=== PATIENT | male | born 1995 | race Two or more races ===

== ENCOUNTER 2018-02-18 | Emergency (ER) | payer SELFPAY ==
[~2018-02-18] VITALS: Ht 160 cm; Wt 65.8 kg
--- NOTE | 2018-02-18 00:15 | PHYS DOC ---
Adult General Chief Complaint Chief Complaint: ALCOHOL INTOXICATION HPI HPI Patient is a 22 y/o HM who presents to the ED for evaluation. EMS reports that patient was found passed out on the front porch of his home by family after knocking on the door. They reported to EMS that the patient has been drinking heavily today. Pt is lethargic upon arrival to the ED, and smells of alcohol, and is unable to provide any meaningful history. Review of Systems Review of Systems Unable to obtain review of systems secondary to intoxication Current Medications Current Medications Current Medications Medications (Trade) Dose Ordered Sig/Tyler Start Time Stop Time Status Last Admin Dose Admin Lorazepam (Ativan) 2 mg STK-MED ONCE 02/18/18 00:47 02/18/18 00:48 DC Ondansetron HCl (Zofran) 4 mg 1X ONCE 02/18/18 01:15 02/18/18 01:16 DC 02/18/18 00:40 4 MG Sodium Chloride 1,000 ml @ 1,000 mls/hr Q1H 02/18/18 00:05 02/18/18 01:04 DC 02/18/18 00:20 1,000 MLS/HR Allergies Allergies Allergies Coded Allergies Type Severity Reaction Last Updated Verified No Known Drug Allergies 02/18/18 No Physical Exam Physical Exam PHYSICAL EXAM: CONSTITUTIONAL: Well developed, well nourished, no evidence of trauma. HEAD: normocephalic, atraumatic EENT: PERRL, EOMI. Conjunctivae are injected bilaterally, sclerae non-icteric; moist mucous membranes. NECK: Supple, non-tender; no meningismus. LUNGS: Lungs CTA, breathing even and unlabored. Normal air movement. HEART: Regular rate and rhythm, no murmur CHEST: No deformity; non-tender ABDOMEN: The abdomen is soft, and non-tender, no masses or bruits. EXTREM: Normal ROM; no deformity, no calf tenderness. Normal pulses palpable in all extremities. There is no pedal edema. SKIN: No rash; no diaphoresis NEURO: LEthargic, does respond to tactile and loud verbal stimuli, CN's grossly intact; strength grossly intact without focal deficit. BACK: No CVA TTP. Current Patient Data Vital Signs Vital Signs Date Time Temp Pulse Resp B/P (MAP) Pulse Ox O2 Delivery O2 Flow Rate FiO2 02/18/18 05:52 82 18 113/59 (77) 96 Room Air 02/18/18 02:18 1.5 02/18/18 00:10 97.9 97.9 Lab Values Laboratory Tests Test 02/18/18 00:15 02/18/18 00:39 02/18/18 01:20 White Blood Count 7.5 x10^3/uL (4.0-11.0) Red Blood Count 5.27 x10^6/uL (4.30-5.70) Hemoglobin 15.5 g/dL (13.0-17.5) Hematocrit 43.7 % (39.0-53.0) Mean Corpuscular Volume 83 fL (79-100) Mean Corpuscular Hemoglobin 29 pg (25-35) Mean Corpuscular Hemoglobin Concent 36 g/dL (31-37) Red Cell Distribution Width 13.8 % (11.5-14.5) Platelet Count 268 x10^3/uL (140-400) Neutrophils (%) (Auto) 44 % (31-73) Lymphocytes (%) (Auto) 45 % (24-48) Monocytes (%) (Auto) 9 % (0-9) Eosinophils (%) (Auto) 2 % (0-3) Basophils (%) (Auto) 1 % (0-3) Neutrophils # (Auto) 3.3 x10^3uL (1.8-7.7) Lymphocytes # (Auto) 3.4 x10^3/uL (1.0-4.8) Monocytes # (Auto) 0.7 x10^3/uL (0.0-1.1) Eosinophils # (Auto) 0.1 x10^3/uL (0.0-0.7) Basophils # (Auto) 0.0 x10^3/uL (0.0-0.2) Prothrombin Time 12.9 SEC (11.7-14.0) Prothrombin Time INR 1.0 (0.8-1.1) PTT 29 SEC (24-38) Sodium Level 140 mmol/L (136-145) Potassium Level 3.8 mmol/L (3.5-5.1) Chloride Level 102 mmol/L (98-107) Carbon Dioxide Level 29 mmol/L (21-32) Anion Gap 9 (6-14) Blood Urea Nitrogen 11 mg/dL (8-26) Creatinine 0.9 mg/dL (0.7-1.3) Estimated GFR (Cockcroft-Gault) 103.7 Glucose Level 112 mg/dL (70-99) H Lactic Acid Level 2.5 mmol/L (0.4-2.0) H Calcium Level 9.0 mg/dL (8.5-10.1) Magnesium Level 2.5 mg/dL (1.8-2.4) H Total Bilirubin 0.3 mg/dL (0.2-1.0) Direct Bilirubin 0.1 mg/dL (0.0-0.2) Aspartate Amino Transferase (AST) 23 U/L (15-37) Alanine Aminotransferase (ALT) 33 U/L (16-63) Alkaline Phosphatase 112 U/L (46-116) Total Protein 8.1 g/dL (6.4-8.2) Albumin 4.1 g/dL (3.4-5.0) Salicylates Level < 2.8 mg/dL (2.8-20.0) L Salicylate Last Dose Date Unk Salicylate Last Dose Time Unk Acetaminophen Level < 2 mcg/ml (10-30) L Acetaminophen Last Dose Date Unk Acetaminophen Last Dose Time Unk Ethyl Alcohol Level 193 mg/dL (0-10) H POC Venous pH 7.35 (7.32-7.42) POC Venous pCO2 51 mmHg (41-51) POC Venous pO2 44 mmHg (20-40) H Venous Blood HCO3 28 mmol/L (24-28) POC Venous O2 Saturation ([place]) 77 % POC FiO2 21.0 Urine Collection Type Unknown Urine Color Yellow Urine Clarity Clear Urine pH 7.0 Urine Specific [place] 1.015 Urine Protein Negative mg/dL (NEG-TRACE) Urine Glucose (UA) Negative mg/dL (NEG) Urine Ketones (Stick) Negative mg/dL (NEG) Urine Blood Negative (NEG) Urine Nitrite Negative (NEG) Urine Bilirubin Negative (NEG) Urine Urobilinogen Dipstick 0.2 mg/dL (0.2 mg/dL) Urine Leukocyte Esterase Negative (NEG) Urine RBC 0 /HPF (0-2) Urine WBC 0 /HPF (0-4) Urine Squamous Epithelial Cells Occ /LPF Urine Bacteria 0 /HPF (0-FEW) Urine Opiates Screen Neg (NEG) Urine Methadone Screen Neg (NEG) Urine Barbiturates Neg (NEG) Urine Phencyclidine Screen Neg (NEG) Urine Amphetamine/Methamphetamine Neg (NEG) Urine Benzodiazepines Screen Neg (NEG) Urine Cocaine Screen Neg (NEG) Urine Cannabinoids Screen Neg (NEG) Urine Ethyl Alcohol Pos (NEG) Laboratory Tests 02/18/18 00:15 Laboratory Tests 02/18/18 00:15 EKG EKG [Normal sinus rhythm at a rate of 146 bpm, normal axis, normal intervals, nonspecific ST/T changes.] Radiology/Procedures Radiology/Procedures [PROCEDURE: PORTABLE CHEST 1V AP chest x-ray HISTORY: Altered mental status. FINDINGS: Heart size normal. Mediastinal silhouette is normal. No pneumothorax, pulmonary opacities or pleural effusions. Bones are unremarkable. IMPRESSION: No acute process.] PROCEDURE: CT HEAD WO CONTRAST CT head without contrast HISTORY: Altered mental status, alcohol intoxication. TECHNIQUE: [address] imaging skull base to vertex. FINDINGS: There is motion artifact at the skull base may decrease sensitivity to detect subtle pathology of the skull base or brainstem. No intracranial hemorrhage, mass, hydrocephalus or infarction. No acute ischemic change. Orbits, mastoids, paranasal sinuses and bones are unremarkable. IMPRESSION: Motion artifact as described above. No acute intracranial CT abnormality. Course & Med Decision Making Course & Med Decision Making Pertinent Labs and Imaging studies reviewed. (See chart for details) [4:00 AM: Patient's condition remained stable. His heart rate is 86. He is still very somnolent. Will stir to tactile stimulus but is not arousable. About 3 hours ago, the patient was reported to have generalized seizure activity lasting about a minute or 2 and was given 2 mg of Ativan intravenously. He did not have any further seizure activity. I did not witness this episode.] 6:30 AM: 6:30 AM: The patient is much more awake at this time. He states he did drink a lot of alcohol last night. He is ambulatory, although still somewhat unsteady on his feet. He will continue to be observed until clinical sobriety is achieved and he is able to ambulate without difficulty or risk of fall. Dragon Disclaimer Dragon Disclaimer This electronic medical record was generated, in whole or in part, using a voice recognition dictation system. Departure Departure Impression: Primary Impression: Acute alcohol intoxication Disposition: 01 HOME, SELF-CARE Condition: STABLE Patient Instructions: Alcohol Intoxication STANLEY HOGUE MD Feb 18, 2018 00:15
[2018-02-18] MEDS: IV NORMAL SALINE 1000ML BAG 1,000 ML IV SCH (00:20)
[2018-02-18 00:40] LABS: BASO % 1 % (0-3); EOS # 0.1 x10^3/uL (0.0-0.7); EOS % 2 % (0-3); HEMATOCRIT 43.7 % (39.0-53.0); HEMOGLOBIN 15.5 g/dL (13.0-17.5); LYMPH # 3.4 x10^3/uL (1.0-4.8); LYMPH % 45 % (24-48); MEAN CORPUSCULAR HEMOGLOBIN 29 pg (25-35); MEAN CORPUSCULAR HGB CONC 36 g/dL (31-37); MEAN CORPUSCULAR VOLUME 83 fL (79-100); MONO # 0.7 x10^3/uL (0.0-1.1); MONO % 9 % (0-9); NEUT # 3.3 x10^3uL (1.8-7.7); NEUT % 44 % (31-73); PLATELET COUNT 268 x10^3/uL (140-400); RED BLOOD COUNT 5.27 x10^6/uL (4.30-5.70); RED CELL DISTRIBUTION WIDTH 13.8 % (11.5-14.5); WHITE BLOOD COUNT 7.5 x10^3/uL (4.0-11.0)
[2018-02-18] MEDS: ONDANSETRON PF 4 MG/2 ML VIAL. IV ONE (00:40)
[2018-02-18 00:46] LABS: ISTAT BE VENOUS 2 mmol/L (0-3); ISTAT HCO3 VEN 28 mmol/L (24-28); ISTAT PCO2 VEN 51 mmHg (41-51); ISTAT PH VEN 7.35 (7.32-7.42); ISTAT PO2 VEN 44 mmHg (20-40); ISTAT SAT O2 VEN 77 %; ISTAT TCO2 VEN 30 mmol/L (21-32)
[2018-02-18 00:49] LABS: PROTHROMBIN TIME PATIENT 12.9 SEC (11.7-14.0)
[2018-02-18 00:54] LABS: CREATININE 0.9 mg/dL (0.7-1.3); GFR 103.7; POTASSIUM 3.8 mmol/L (3.5-5.1)
[2018-02-18 00:59] LABS: ALBUMIN 4.1 g/dL (3.4-5.0); DIRECT BILIRUBIN 0.1 mg/dL (0.0-0.2); MAGNESIUM 2.5 mg/dL (1.8-2.4); TOTAL BILIRUBIN 0.3 mg/dL (0.2-1.0); TOTAL PROTEIN 8.1 g/dL (6.4-8.2)
[2018-02-18 01:00] LABS: ACETAMIN < 2 mcg/ml (10-30); ETHANOL 193 mg/dL (0-10); SALIC < 2.8 mg/dL (2.8-20.0)
[2018-02-18 01:32] LABS: BILIRUBIN,URINE NEGATIVE (NEG); CLARITY,URINE CLEAR; COLOR,URINE YELLOW; NITRITE,URINE NEGATIVE (NEG); PROTEIN,URINE NEGATIVE (NEG-TRACE); UROBILINOGEN,URINE 0.2 mg/dL (0.2 mg/dL)
[2018-02-18 01:38] LABS: BARBITURATES NEG (NEG); BENZODIAZEPINES NEG (NEG); CANNABINOIDS NEG (NEG); COCAINE NEG (NEG); METHADONE NEG (NEG); OPIATES NEG (NEG); PHENCYCLIDINE NEG (NEG)
[2018-02-18 01:40] LABS: BACTERIA,URINE 0 /HPF (0-FEW); RBC,URINE 0 /HPF (0-2); SQUAMOUS EPITHELIAL CELL,UR OCC /LPF; WBC,URINE 0 /HPF (0-4)
[2018-02-18 01:41] LABS: AMPHETAMINE/METHAMPHETAMINE NEG (NEG)
--- NOTE | 2018-02-18 03:15 | RAD ---
CT head without contrast HISTORY: Altered mental status, alcohol intoxication. TECHNIQUE: [address] imaging skull base to vertex. FINDINGS: There is motion artifact at the skull base may decrease sensitivity to detect subtle pathology of the skull base or brainstem. No intracranial hemorrhage, mass, hydrocephalus or infarction. No acute ischemic change. Orbits, mastoids, paranasal sinuses and bones are unremarkable. IMPRESSION: Motion artifact as described above. No acute intracranial CT abnormality. Exposure: One or more of the following individualized dose reduction techniques were utilized for this examination: 1. Automated exposure control 2. Adjustment of the mA and/or kV according to patient size 3. Use of iterative reconstruction technique Electronically signed by: Harvinder Jamison MD (02/18/2018 3:12 AM) [id number]
--- NOTE | 2018-02-18 04:39 | RAD ---
AP chest x-ray HISTORY: Altered mental status. FINDINGS: Heart size normal. Mediastinal silhouette is normal. No pneumothorax, pulmonary opacities or pleural effusions. Bones are unremarkable. IMPRESSION: No acute process. Electronically signed by: Harvinder Jamison MD (02/18/2018 4:35 AM) [id number]
--- NOTE | 2018-02-18 05:24 | EKG ---
[address] [place] [id number] Test Date: 2018-02-18 Test Time: 00:45:57 Pat Name: MAER ZENG Department: Room: Gender: M [employer]: : [id number] Requested By: STANLEY HOGUE Order Number: [id number] Reading MD: Marcus Avendano MD Measurements Intervals [place] Rate: 146 P: 0 DC: 108 QRS: 82 QRSD: 84 T: 22 QT: 250 QTc: 391 Interpretive Statements SINUS TACHYCARDIA Electronically Signed On 02-19-2018 8:46:42 CDT by Marcus Avendano MD
[2018-02-18 09:00] VITALS: BP 108/53
== END 2018-02-18 09:26 | disposition home or self-care (01) ==
LOC: ER
DX: F10.129 Alcohol abuse with intoxication, unspecified (principal); R53.83 Other fatigue
CPT/HCPCS: 36415; 70450; 71045; 80048; 80076; 80307; 80329; 81001; 82803; 83605; 83735; 85025; 85610; 85730; 93005; 96374; 96375; 99285; G0480; G6039; J2060; J2405; J7030; G0479